=== PATIENT | female | born 1960 | race African-American/Black ===

== ENCOUNTER 2018-03-23 12:32 | Inpatient (IN) | END 2018-03-24 14:27 | disposition home or self-care (01) | DRG 918 ==

== ENCOUNTER 2018-07-04 09:07 | Inpatient (IN) | END 2018-07-05 16:00 | disposition home or self-care (01) | DRG 315 ==

== ENCOUNTER 2018-07-13 12:50 | Inpatient (IN) | END 2018-07-15 20:25 | disposition left against medical advice (07) | DRG 684 ==

== ENCOUNTER 2018-07-18 14:04 | Emergency (ER) | END 2018-07-18 17:11 | disposition home or self-care (01) ==

== ENCOUNTER 2018-07-19 15:35 | Emergency (ER) | END 2018-07-19 18:50 | disposition home or self-care (01) ==

== ENCOUNTER 2018-07-29 15:05 | Emergency (ER) | payer OTHER ==
[~2018-07-29] VITALS: Wt 72.0 kg
[~2018-07-29 15:05] MED LIST: ASPI325T32 PO; ATOR-2 PO; CLOP75TA19 PO; GABA100C14 PO; HYDR-4011 PO; IBUP-1542 PO; LISI10TA2 PO; METO-448 PO; SERT50TA6 PO; TRA100 PO
[2018-07-29] MEDS ORDERED: SOD CHLORIDE 0.9% 1,000 ML IV STA (15:09)
[2018-07-29] MEDS ORDERED: ACETAMINOPHEN 325 MG TAB PO ONE (15:30)
[2018-07-29 16:46] VITALS: BP 124/72; PULSE 72; RESP 24
--- NOTE | 2018-07-29 18:59 | ERD ---
ER Documentation Chief Complaint Chief Complaint bib ra from home for hypotension HPI Patient is a 58-year-old female with hypertension and diabetes who presents with dizziness. The patient was brought in by ambulance. She feels dizzy and has low blood pressure of 80/60. Sugar was 103 by paramedics. She says "I am dehydrated". The patient has multiple visits for similar complaints. She reports to drinking 1 beer and says that she has a cough. Upon review of old medical records the patient has multiple visits for similar complaints and her emergency department information exchange system report shows visits to 4 separate emergency departments. ROS All systems reviewed and are negative except as per history of present illness. Medications Home Meds Active Scripts Hydrocodone/Acetaminophen ([place] 5-325 Tablet) 1 Each Tablet, 1 TAB PO Q6H PRN for PAIN, #7 TAB Prov:MAGNOLIA MCCOLLUM MD 07/18/18 Ibuprofen* (Ibuprofen*) 600 Mg Tablet, 600 MG PO Q6H, #14 TAB Prov:MAGNOLIA MCCOLLUM MD 07/18/18 Trazodone Hcl* (Trazodone Hcl*) 100 Mg Tablet, 100 MG PO HS, #30 TAB Prov:LEELEE BROWN MD 07/09/18 Reported Medications Gabapentin* (Gabapentin*) 100 Mg Capsule, 200 MG PO BID, #180 CAP 07/07/18 Clopidogrel Bisulfate* (Clopidogrel Bisulfate*) 75 Mg Tablet, 75 MG PO DAILY, #30 TAB 07/07/18 Atorvastatin* (Atorvastatin*) 80 Mg Tablet, 80 MG PO QHS, #30 TAB 07/07/18 Aspirin* (Aspirin* EC) 325 Mg Tab, 325 MG PO DAILY, TAB 07/07/18 Sertraline Hcl* (Sertraline Hcl*) 50 Mg Tablet, 50 MG PO DAILY, #30 TAB 07/07/18 Metoprolol Tartrate* (Lopressor*) 25 Mg Tab, 25 MG PO BID, #60 TAB 07/07/18 Lisinopril* (Lisinopril*) 10 Mg Tablet, 10 MG PO DAILY, #30 TAB 07/07/18 Allergies Allergies: Coded Allergies: No Known Allergy (Unverified , 07/29/18) PMhx/Soc History of Surgery: No Anesthesia Reaction: No Hx Neurological Disorder: No Hx Respiratory Disorders: No Hx Cardiac Disorders: Yes (2X stents 2016) Hx Psychiatric Problems: Yes (anxiety ) Hx Miscellaneous Medical Probl: Yes (Kidney failure, DM, CVA) Hx Alcohol Use: Yes Hx Substance Use: Yes (Crack, quit 14 years ago) Hx Tobacco Use: Yes Smoking Status: Former smoker FmHx Family History: diabetes Physical Exam Vitals Vital Signs Date Temp Pulse Resp B/P (MAP) Pulse Ox O2 O2 Flow FiO2 Time Delivery Rate 07/29/18 72 24 124/72 99 Room Air 16:46 (89) 07/29/18 Nasal 15:12 Cannula 07/29/18 98.3 79 19 95/59 (71) 96 15:08 Physical Exam Const: No acute distress Head: Atraumatic Eyes: Normal Conjunctiva ENT: Dry mucous membranes Neck: Full range of motion. No meningismus. Resp: Clear to auscultation bilaterally Cardio: Regular rate and rhythm, no murmurs Abd: Soft, non tender, non distended. Normal bowel sounds Skin: No petechiae or rashes Back: No midline or flank tenderness Ext: No cyanosis, or edema Neur: Awake and alert Psych: Normal Mood and Affect Result Diagram: 07/29/18 1533 07/29/18 1533 Results 24 hrs Laboratory Tests Test 07/29/18 15:33 White Blood Count 8.2 10^3/ul Red Blood Count 4.13 10^6/ul Hemoglobin 11.1 g/dl Hematocrit 34.3 % Mean Corpuscular Volume 83.1 fl Mean Corpuscular Hemoglobin 26.9 pg Mean Corpuscular Hemoglobin Concent 32.4 g/dl Red Cell Distribution Width 13.8 % Platelet Count 234 10^3/UL Mean Platelet Volume 10.0 fl Immature Granulocytes % 0.200 % Neutrophils % 46.5 % Lymphocytes % 38.9 % Monocytes % 10.6 % Eosinophils % 2.8 % Basophils % 1.0 % Nucleated Red Blood Cells % 0.0 /100WBC Immature Granulocytes # 0.020 10^3/ul Neutrophils # 3.8 10^3/ul Lymphocytes # 3.2 10^3/ul Monocytes # 0.9 10^3/ul Eosinophils # 0.2 10^3/ul Basophils # 0.1 10^3/ul Nucleated Red Blood Cells # 0.0 10^3/ul Prothrombin Time Sec Prothrombin Time Ratio INR International Normalized Ratio Activated Partial Thromboplast Time Sec Sodium Level 141 mmol/L Potassium Level 4.3 mmol/L Chloride Level 107 mmol/L Carbon Dioxide Level 18 mmol/L Anion Gap 16 Blood Urea Nitrogen 20 mg/dl Creatinine 1.86 mg/dl Est Glomerular Filtrat Rate mL/min 34 mL/min Glucose Level 95 mg/dl POC Venous Lactate 2.0 mmol/L Calcium Level 10.2 mg/dl Troponin I 0.015 ng/ml Ethyl Alcohol Level 34.0 mg/dl Current Medications Medications Dose Sig/Heather Start Time Status Last (Trade) Ordered Route PRN Stop Time Admin Dose Reason Admin Sodium 1,000 ml @ Q1H STAT 07/29/18 DC 07/29/18 Chloride 1,000 mls/hr IV 15:09 15:26 07/29/18 16:08 650 mg ONCE ONCE 07/29/18 DC 07/29/18 Acetaminophen PO 15:30 15:24 (Tylenol 07/29/18 Tab) 15:31 Procedures/MDM Smoking Cessation Therapy: Pt. was lectured for greater than 3 minutes on the health risks of continued smoking and the benefits of cessation. Patient is a 58-year-old female who presents with dehydration. She was given 1 L of normal saline and her blood pressure has improved to 120 systolic. Her creatinine is stable for her. I doubt acute renal failure. I doubt sepsis or other serious electrolyte abnormality. I believe outpatient management is appropriate. Patient will be discharged. This is her seventh visit to the ER just this month for the same. I do believe there may be an element of malingering at this time she is reluctant to leave the ER. Departure Diagnosis: Primary Impression: Dehydration Additional Impression: Hypotension Hypotension type: unspecified hypotension type Qualified Codes: I95.9 - Hypotension, unspecified Condition: Fair Patient Instructions: Low Blood Pressure (Hypotension), Hypotension, Orthostatic Referrals: COMM[facility]ITY CLIN[facility] YOU HAVE RECEIVED A MEDICAL SCREENING EXAM AND THE RESULTS INDICATE THAT YOU DO NOT HAVE A CONDITION THAT REQUIRES URGENT TREATMENT IN THE EMERGENCY DEPARTMENT. FURTHER EVALUATION AND TREATMENT OF YOUR CONDITION CAN WAIT UNTIL YOU ARE SEEN IN YOUR DOCTORS OFFICE WITHIN THE NEXT 1-2 DAYS. IT IS YOUR RESPONSIBILITY TO MAKE AN APPOINTMENT FOR FOLOW-UP CARE. IF YOU HAVE A PRIMARY DOCTOR --you should call your primary doctor and schedule an appointment IF YOU DO NOT HAVE A PRIMARY DOCTOR YOU CAN CALL OUR PHYSICIAN REFERRAL HOTLINE AT IF YOU CAN NOT AFFORD TO SEE A PHYSICIAN YOU CAN CHOSE FROM THE FOLLOWING [facility] [address] [facility] [address] [facility] [address] [facility] [address] [facility]. [facility] [phone] [facility]. [facility] [address] Additional Instructions: Call your primary care doctor TOMORROW for an appointment during the next 1-2 days.See the doctor sooner or return here if your condition worsens before your appointment time. YANIRA MCWILLIAMS MD Jul 29, 2018 18:59
== END 2018-07-29 17:10 | disposition home or self-care (01) ==
LOC: E/R 15:05
DX: E86.0 Dehydration (principal); E11.9 Type 2 diabetes mellitus without complications; Z79.01 Long term (current) use of anticoagulants; Z79.82 Long term (current) use of aspirin; Z86.73 Personal history of transient ischemic attack (TIA), and cerebral infarction without residual deficits; Z87.891 Personal history of nicotine dependence; Z98.61 Coronary angioplasty status
CPT/HCPCS: 36415; 71045; 80048; 80307; 83605; 84484; 85025; 85610; 85730; 87040; 93005; J7030; Z7502; Z7610

== ENCOUNTER 2018-08-17 11:06 | Emergency (ER) | payer OTHER ==
[~2018-08-17] VITALS: Ht 165.1 cm; Wt 52.0 kg
[2018-08-17 11:46] VITALS: Ht 165.1 cm; Wt 52.0 kg
[2018-08-17] MEDS ORDERED: SOD CHLORIDE 0.9% 1,000 ML IV STA ×2 (12:14→13:23)
--- NOTE | 2018-08-17 12:20 | ERD ---
ER Documentation Chief Complaint Chief Complaint PT BIB RA 39 WITH C/O HYPOTENSION AND DIZZYNESS SINCE AM HPI 58-year-old female brought in by ambulance after she had dizziness and nearly passed out while trying to take a taxi to the ER. Patient has a history of hypertension, diabetes, multiple strokes, CAD status post stents. She has had multiple ER visits in the past for the same symptoms of hypotension and dizziness with also a history of alcohol intoxication. She states that since this morning she has been feeling lightheaded. She is compliant with all of her medications. She complains of right-sided body pain, however she states this is secondary to a fall she had 2 weeks ago. However she is able to walk without difficulty. She denies any new focal weakness or numbness. No fever, chills, headache, nausea, vomiting, vision disturbance, abdominal pain. She does complain of mild chronic chest pain that is aching, no alleviating or exacerbating factors, that has also been going on for 2 weeks. No associated shortness of breath. She also complains of dysuria. ROS All systems reviewed and are negative except as per history of present illness. Medications Home Meds Active Scripts Hydrocodone/Acetaminophen ([place] 5-325 Tablet) 1 Each Tablet, 1 TAB PO Q6H PRN for PAIN, #7 TAB Prov:MAGNOLIA MCCOLLUM MD 07/18/18 Ibuprofen* (Ibuprofen*) 600 Mg Tablet, 600 MG PO Q6H, #14 TAB Prov:MAGNOLIA MCCOLLUM MD 07/18/18 Trazodone Hcl* (Trazodone Hcl*) 100 Mg Tablet, 100 MG PO HS, #30 TAB Prov:LEELEE BROWN MD 07/09/18 Reported Medications Gabapentin* (Gabapentin*) 100 Mg Capsule, 200 MG PO BID, #180 CAP 07/07/18 Clopidogrel Bisulfate* (Clopidogrel Bisulfate*) 75 Mg Tablet, 75 MG PO DAILY, #30 TAB 07/07/18 Atorvastatin* (Atorvastatin*) 80 Mg Tablet, 80 MG PO QHS, #30 TAB 07/07/18 Aspirin* (Aspirin* EC) 325 Mg Tab, 325 MG PO DAILY, TAB 07/07/18 Sertraline Hcl* (Sertraline Hcl*) 50 Mg Tablet, 50 MG PO DAILY, #30 TAB 07/07/18 Metoprolol Tartrate* (Lopressor*) 25 Mg Tab, 25 MG PO BID, #60 TAB 07/07/18 Lisinopril* (Lisinopril*) 10 Mg Tablet, 10 MG PO DAILY, #30 TAB 07/07/18 Allergies Allergies: Coded Allergies: No Known Allergy (Unverified , 07/29/18) PMhx/Soc History of Surgery: No Anesthesia Reaction: No Hx Neurological Disorder: Yes (CVA) Hx Respiratory Disorders: No Hx Cardiac Disorders: Yes (2X stents 2016) Hx Psychiatric Problems: Yes (anxiety ) Hx Miscellaneous Medical Probl: Yes (Kidney failure, DM, CVA) Hx Alcohol Use: Yes Hx Substance Use: Yes (Crack, quit 14 years ago) Hx Tobacco Use: Yes Smoking Status: Current every day smoker FmHx Family History: No diabetes Physical Exam Vitals Vital Signs Date Temp Pulse Resp B/P (MAP) Pulse Ox O2 O2 Flow FiO2 Time Delivery Rate 08/17/18 98.4 79 19 115/75 100 Room Air 17:20 (88) 08/17/18 98.4 80 20 114/70 100 Room Air 15:51 (85) 08/17/18 98.4 69 16 95/62 (73) 99 Room Air 12:40 08/17/18 98.4 66 16 84/53 (63) 99 11:46 Physical Exam Const: No acute distress, well-appearing, nontoxic Head: Atraumatic Eyes: Normal Conjunctiva, PERRLA, EOMI, no nystagmus ENT: Normal External Ears, Nose and Mouth. Neck: Full range of motion. No meningismus. Resp: Clear to auscultation bilaterally Cardio: Regular rate and rhythm, no murmurs Abd: Soft, non tender, non distended. Normal bowel sounds Skin: No petechiae or rashes Back: No midline or flank tenderness Ext: No cyanosis, or edema Neur: Awake and alert, oriented x3, no obvious facial asymmetry, cranial nerves intact, strength and sensations intact in all 4 extremities. Psych: Normal Mood and Affect Result Diagram: 08/17/18 1228 08/17/18 1228 Results 24 hrs Laboratory Tests Test 08/17/18 12:28 08/17/18 13:52 White Blood Count 6.9 10^3/ul Red Blood Count 3.94 10^6/ul Hemoglobin 10.4 g/dl Hematocrit 32.8 % Mean Corpuscular Volume 83.2 fl Mean Corpuscular Hemoglobin 26.4 pg Mean Corpuscular Hemoglobin Concent 31.7 g/dl Red Cell Distribution Width 14.0 % Platelet Count 253 10^3/UL Mean Platelet Volume 10.0 fl Immature Granulocytes % 0.300 % Neutrophils % 55.0 % Lymphocytes % 33.9 % Monocytes % 8.4 % Eosinophils % 1.7 % Basophils % 0.7 % Nucleated Red Blood Cells % 0.0 /100WBC Immature Granulocytes # 0.020 10^3/ul Neutrophils # 3.8 10^3/ul Lymphocytes # 2.3 10^3/ul Monocytes # 0.6 10^3/ul Eosinophils # 0.1 10^3/ul Basophils # 0.1 10^3/ul Nucleated Red Blood Cells # 0.0 10^3/ul Sodium Level 140 mmol/L Potassium Level 4.0 mmol/L Chloride Level 103 mmol/L Carbon Dioxide Level 22 mmol/L Anion Gap 15 Blood Urea Nitrogen 21 mg/dl Creatinine 1.47 mg/dl Est Glomerular Filtrat Rate mL/min 44 mL/min Glucose Level 131 mg/dl Calcium Level 9.5 mg/dl Troponin I < 0.012 ng/ml Urine Color YELLOW Urine Clarity CLEAR Urine pH 5.0 Urine Specific [place] 1.012 Urine Ketones NEGATIVE mg/dL Urine Nitrite NEGATIVE mg/dL Urine Bilirubin NEGATIVE mg/dL Urine Urobilinogen NEGATIVE mg/dL Urine Leukocyte Esterase NEGATIVE Vero/ul Urine Hemoglobin NEGATIVE mg/dL Urine Glucose NEGATIVE mg/dL Urine Total Protein NEGATIVE mg/dl Current Medications Medications Dose Sig/Heather Start Time Status Last (Trade) Ordered Route PRN Stop Time Admin Dose Reason Admin Sodium 1,000 ml @ Q1H STAT 08/17/18 DC 08/17/18 Chloride 1,000 mls/hr IV 12:14 12:28 08/17/18 13:13 650 mg ONCE ONCE 08/17/18 DC 08/17/18 Acetaminophen PO 12:30 12:28 (Tylenol 08/17/18 12:31 Tab) Sodium 1,000 ml @ Q1H STAT 08/17/18 DC 08/17/18 Chloride 1,000 mls/hr IV 13:23 13:30 08/17/18 14:22 1 tab ONCE ONCE 08/17/18 DC 08/17/18 Acetaminophen PO 14:30 14:33 / 08/17/18 14:31 Hydrocodone Bitart ([place] (6/)) Procedures/MDM EMERGENT LABS AND DIAGNOSTIC STUDIES: Lab Results above were reviewed and interpreted by me. CBC: no anemia or evidence of infection BMP: [no e/o severe acidosis, alkalosis, renal failure, diabetic ketoacidosis] Troponin within normal limits, not indicative of cardiac ischemia UA: no evidence of infection 12-lead EKG was interpreted by Minnie Bob MD: Normal Sinus Rhythm with ventricular rate of 66 beats per minute Normal axis Normal intervals Inferior and lateral T wave flattening No acute ST or T wave changes suggestive of acute ischemia or STEMI. Radiology Results as interpreted by Radiology below were reviewed by Guera Bob MD: Chest x-ray: No acute abnormalities Initial Nursing notes reviewed. Previous Medical Records requested via the Electronic Health Record. EMERGENCY DEPARTMENT COURSE / MEDICAL DECISION MAKING: Patient is presenting with hypotension which is she has had multiple visits for in the past. She is usually dehydrated. She did have borderline hypotension here with some symptoms. EKG did not show any significant abnormalities. Wo rkup did not show any abnormalities either. I have a low suspicion for pulmonary embolism, ACS, stroke, sepsis. IV fluids were given with improvement of her hypotension. I feel the patient is stable for discharge back to her facility. Patient's blood pressure was elevated (>120/80) but appears stable without evidence of hypertensive emergency or urgency. The patient was counseled about the risks of hypertension and urged to pursue outpatient monitoring and therapy within a week with their primary care physician. Departure Diagnosis: Primary Impression: Hypotension Hypotension type: unspecified hypotension type Qualified Codes: I95.9 - Hypotension, unspecified Additional Impressions: Chronic kidney disease Chronic kidney disease stage: unspecified stage Qualified Codes: N18.9 - Chronic kidney disease, unspecified Chronic anemia Condition: Stable AUGUSTUS BOB MD Aug 17, 2018 12:20
[2018-08-17] MEDS ORDERED: ACETAMINOPHEN 325 MG TAB PO ONE (12:30)
[2018-08-17] MEDS ORDERED: HYDROCODONE/APAP (5/325) TAB PO ONE (14:30)
[2018-08-17 17:20] VITALS: BP 115/75; PULSE 79; RESP 19
== END 2018-08-17 17:21 | disposition home or self-care (01) ==
LOC: E/R 11:06
DX: I95.9 Hypotension, unspecified (principal); E11.22 Type 2 diabetes mellitus with diabetic chronic kidney disease; N18.9 Chronic kidney disease, unspecified; D63.1 Anemia in chronic kidney disease; F17.210 Nicotine dependence, cigarettes, uncomplicated; Z79.82 Long term (current) use of aspirin; Z86.73 Personal history of transient ischemic attack (TIA), and cerebral infarction without residual deficits
CPT/HCPCS: 36415; 71045; 80048; 81003; 84484; 85025; J7030; Z7502; Z7610; 93005